=== PATIENT | male | born 1990 | race Caucasian/White ===

== ENCOUNTER 2018-04-30 23:29 | Emergency (ER) | payer OTHER ==
[2018-04-30] MEDS: SOD CHLORIDE 0.9% 1,000 ML IV (23:51)
== END 2018-05-01 01:24 | disposition home or self-care (01) ==
LOC: E/R 23:29
DX: T40.7X1A Poisoning by cannabis (derivatives), accidental (unintentional), initial encounter (principal); R40.2142 Coma scale, eyes open, spontaneous, at arrival to emergency department; R40.2252 Coma scale, best verbal response, oriented, at arrival to emergency department; R40.2362 Coma scale, best motor response, obeys commands, at arrival to emergency department
CPT/HCPCS: 99284-25; J7030